=== PATIENT | male | born 1990 | race Caucasian/White ===

== ENCOUNTER 2021-02-11 14:32 | Emergency (ER) | payer SELFPAY ==
[~2021-02-11] VITALS: Ht 172.7 cm; Wt 80.0 kg
[2021-02-11 16:54] LABS: BASOPHILS % 0.4 % (0.0-2.0); HEMATOCRIT. 41.5 % (42.0-52.0); HEMOGLOBIN. 14.2 g/dL (14.0-18.0); LYMPHOCYTES % 11.1 % (20.0-50.0); MEAN CORPUSCULAR VOLUME 84.8 fL (80.0-94.0); MEAN PLATELET VOLUME 9.3 fl (7.4-10.4); MONOCYTES % 3.7 % (2.0-8.0); NEUTROPHILS % 84.8 % (40.0-76.0); PLATELET 262 x1000/uL (130-400); RED BLOOD CELL COUNT 4.89 mill/uL (4.7-6.1); RED CELL DISTRIBUTION WIDTH 13.6 % (11.6-14.6)
[2021-02-11 16:57] LABS: CHLORIDE 112 mEq/L (98-107)
[2021-02-11] MEDS ORDERED: KEPP500 MT (21:03)
[2021-02-11 21:18] VITALS: BP 115/69
== END 2021-02-11 21:18 | disposition home or self-care (01) ==
LOC: ER 14:32
DX: G40.909 Epilepsy, unspecified, not intractable, without status epilepticus (principal)
CPT/HCPCS: 36415; 80048; 85025; 99284